=== PATIENT | female | born 1940 | race Caucasian/White ===

== ENCOUNTER 2017-07-24 14:42 | Emergency (ER) | payer OTHER ==
[~2017-07-24] VITALS: Ht 154.9 cm; Wt 127.7 kg
[2017-07-24] VITALS (7 sets, daily range): BP systolic 169–214; BP diastolic 67–129; PULSE 56–71; RESP 18–20; TEMP 97.6; O2SAT 94–96
[~2017-07-24 14:42] MED LIST: ADVA250A INH; ALLO300T2 PO; BUPR150T3 PO; FURO1TAB93 PO; GLUCTAB PO; LEVO75TA41 PO; LISI-360 PO; NORV5TAB PO; NOVOLOGP2 SQ; POTA-243 PO; SIMV80TA PO; VITA200017 PO
[2017-07-24] MEDS ORDERED: WELL200T PO (15:11)
[2017-07-24] MEDS ORDERED: MELO15TA20 PO (15:11)
[2017-07-24] MEDS ORDERED: ASPI-183 PO (15:11)
[2017-07-24] MEDS ORDERED: POTA10CA PO (15:11)
[2017-07-24] MEDS ORDERED: ATOR80TA45 PO (15:11)
[2017-07-24] MEDS ORDERED: GABA300C5 PO (15:11)
[2017-07-24] MEDS ORDERED: LISI10TA3 PO (15:11)
[2017-07-24] MEDS ORDERED: LEVO75TA3 PO (15:11)
[2017-07-24] MEDS ORDERED: FURO40TA PO (15:11)
[2017-07-24] MEDS ORDERED: ALLO300T2 PO (15:11)
[2017-07-24] MEDS ORDERED: TRAM50TA PO (15:11)
--- NOTE | 2017-07-24 15:30 | PD ---
HPI Chief Complaint: Cardiac Complaint Time Seen by Provider: 15:43 Travel History International Travel<30 days: No Contact w/Intl Traveler<30days: No Traveled to known affect area: No History of Present Illness HPI 77yo F presented to the ED as a referral from her Dr. Snow office for elevated blood pressure. Pt states that the nurse at the office checked her BP initially and then again at the end of the visit, with her BP ranging in the 200s systolic and high 90s diastolic. Pt has a significant medical history of CHF, HTN, and gout. She is noncompliant with her medication regimen. her last does of Lasix was several days ago. Pt denies chest pain, focal neurologic deficits, nausea, vomiting, orthopnea or headache. She does admit to a slight change in her vision while driving to the ED and SOB. Modifying Factors: None Associated Signs & Symptoms: Elevated blood pressures Risk Factors: History of hypertension, CHF, not taking her Lasix PFSH Past Medical History Cancer: Yes (MELANOMA ARM) Cardiovascular Problems: Yes (CHF, HTN) Diabetes: Yes Patient Takes Glucophage: No Endocrine: No Genitourinary: No Hepatitis: No Hiatal Hernia: No Hypertension: Yes Immune Disorder: No Musculoskeletal: Yes (arthritis) Neurologic: Yes (TIA) Psychiatric: No Reproductive: No Respiratory: Yes (SLEEP APNEA/ CPAP, COPD) Thyroid Disease: Yes Influenza Vaccination: Yes ?: Not Past Surgical History Abdominal Surgery: Yes (CHOLECYSTECTOMY) AICD: No Cardiac Surgery: Yes (STENT) Cholecystectomy: Yes Genitourinary Surgery: Yes (BLADDER SUSP.) Joint Replacement: No Oral Surgery: Yes (T & A) Pacemaker: No Tonsillectomy: Yes Other Surgery: Yes Social History Alcohol Use: No Tobacco Use: No Substance Use: No Allergies-Medications (Allergen,Severity, Reaction): Coded Allergies: atorvastatin (Unverified Allergy, Severe, can,t sleep, 07/24/17) ciprofloxacin (Unverified Allergy, Severe, DYSPHAGIA, NAUSEA, 07/24/17) clopidogrel (Unverified Allergy, Severe, rash, 07/24/17) meloxicam (Unverified Allergy, Severe, NAUSEA, 07/24/17) morphine (Unverified Allergy, Severe, rash, 07/24/17) piperacillin (Unverified Allergy, Severe, rash, 07/24/17) sulfamethoxazole (Unverified Allergy, Severe, rash, 07/24/17) tazobactam (Unverified Allergy, Severe, rash, 07/24/17) trimethoprim (Unverified Allergy, Severe, rash, 07/24/17) iodine (Unverified Allergy, Intermediate, rash, 07/24/17) IV DYE potassium iodide (Unverified Allergy, Intermediate, rash, 07/24/17) IV DYE povidone-iodine (Unverified Allergy, Intermediate, rash, 07/24/17) IV DYE sodium iodide (Unverified Allergy, Intermediate, rash, 07/24/17) IV DYE sodium iodide (Unverified Allergy, Intermediate, rash, 07/24/17) IV DYE Uncoded Allergies: metals (Allergy, Severe, rash, 03/14/13) Reported Meds & Prescriptions Reported Meds & Active Scripts Active Reported Tramadol (Tramadol HCl) 50 Mg Tab 50 Mg PO Q8H PRN Gabapentin 300 Mg Cap 300 Mg PO HS Atorvastatin (Atorvastatin Calcium) 80 Mg Tab 80 Mg PO HS Meloxicam 15 Mg Tab 15 Mg PO DAILY Furosemide 40 Mg Tab 40 Mg PO BID Lisinopril 10 Mg Tab 10 Mg PO DAILY Potassium Chloride ER (Potassium Chloride) 10 Meq Cap 10 Meq PO DAILY Levothyroxine (Levothyroxine Sodium) 75 Mcg Tab 75 Mcg PO DAILY Aspirin 325 Mg Tab 325 Mg PO DAILY Wellbutrin SR 12 HR (Bupropion HCl) 200 Mg Tab 200 Mg PO Q12HR Allopurinol 300 Mg Tab 300 Mg PO DAILY Review of Systems Except as stated in HPI: all other systems reviewed are Neg Respiratory: Positive: Shortness of Breath Physical Exam Narrative GENERAL: 77 well-developed, obese female in no acute distress. Alert and oriented x3. SKIN: Warm and dry. HEAD: Atraumatic. Normocephalic. NECK: Trachea midline. No JVD. Supple. CARDIOVASCULAR: Regular rate and rhythm. RESPIRATORY: No accessory muscle use. Clear to auscultation. Breath sounds equal bilaterally. GASTROINTESTINAL: Abdomen soft, non-tender, nondistended. Hepatic and splenic margins not palpable. MUSCULOSKELETAL: Extremities without clubbing, cyanosis. Bilateral pedal edema. No obvious deformities. NEUROLOGICAL: Awake and alert. No obvious cranial nerve deficits. Motor grossly within normal limits. Five out of 5 muscle strength in the arms and legs. Normal speech. PSYCHIATRIC: Appropriate mood and affect; insight and judgment normal. Data Data Last Documented VS Vital Signs Date Time Temp Pulse Resp B/P (MAP) Pulse Ox O2 Delivery O2 Flow Rate FiO2 07/24/17 18:11 58 18 188/89 (122) 96 07/24/17 17:00 Room Air 07/24/17 15:01 97.6 Orders Orders Complete Blood Count With Diff (07/24/17 15:43) Comprehensive Metabolic Panel (07/24/17 15:43) B-Type Natriuretic Peptide (07/24/17 15:43) Ckmb (Isoenzyme) Profile (07/24/17 15:43) Troponin I (07/24/17 15:43) Iv Access Insert/Monitor (07/24/17 15:43) Electrocardiogram (07/24/17 15:43) Ecg Monitoring (07/24/17 15:43) Oximetry (07/24/17 15:43) Oxygen Administration (07/24/17 15:43) Chest, Single Ap (07/24/17 15:43) Sodium Chloride 0.9% Flush (Ns Flush) (07/24/17 15:45) CKMB (07/24/17 15:24) CKMB% (07/24/17 15:24) Furosemide Inj (Lasix Inj) (07/24/17 17:30) Nitroglycerin 2% Oint (Nitroglycerin 2% (07/24/17 17:30) Labs Laboratory Tests Test 07/24/17 15:24 White Blood Count 6.9 TH/MM3 Red Blood Count 4.68 MIL/MM3 Hemoglobin 13.9 GM/DL Hematocrit 43.5 % Mean Corpuscular Volume 92.9 FL Mean Corpuscular Hemoglobin 29.6 PG Mean Corpuscular Hemoglobin Concent 31.9 % Red Cell Distribution Width 14.2 % Platelet Count 152 TH/MM3 Mean Platelet Volume 8.1 FL Neutrophils (%) (Auto) 65.7 % Lymphocytes (%) (Auto) 22.9 % Monocytes (%) (Auto) 6.5 % Eosinophils (%) (Auto) 4.2 % Basophils (%) (Auto) 0.7 % Neutrophils # (Auto) 4.6 TH/MM3 Lymphocytes # (Auto) 1.6 TH/MM3 Monocytes # (Auto) 0.5 TH/MM3 Eosinophils # (Auto) 0.3 TH/MM3 Basophils # (Auto) 0.0 TH/MM3 CBC Comment DIFF FINAL Differential Comment Blood Urea Nitrogen 21 MG/DL Creatinine 1.00 MG/DL Random Glucose 75 MG/DL Total Protein 7.0 GM/DL Albumin 3.6 GM/DL Calcium Level 9.5 MG/DL Alkaline Phosphatase 92 U/L Aspartate Amino Transf (AST/SGOT) 20 U/L Alanine Aminotransferase (ALT/SGPT) 23 U/L Total Bilirubin 0.5 MG/DL Sodium Level 143 MEQ/L Potassium Level 4.4 MEQ/L Chloride Level 106 MEQ/L Carbon Dioxide Level 31.6 MEQ/L Anion Gap 5 MEQ/L Estimat Glomerular Filtration Rate 54 ML/MIN Total Creatine Kinase 123 U/L Creatine Kinase MB 4.2 NG/ML Troponin I LESS THAN 0.02 NG/ML B-Type Natriuretic Peptide 78 PG/ML [facility] Medical Decision Making Medical Screen Exam Complete: Yes Emergency Medical Condition: Yes Medical Record Reviewed: Yes Interpretation(s) EKG shows sinus bradycardia rate of 56 bpm, no ST elevation or depression, and no arrhythmias. No significant T-wave inversions. Laboratory Tests Test 07/24/17 15:24 Mean Corpuscular Hemoglobin Concent 31.9 % (32.0-36.0) Eosinophils (%) (Auto) 4.2 % (0.0-4.0) Blood Urea Nitrogen 21 MG/DL (7-18) Estimat Glomerular Filtration Rate 54 ML/MIN (>89) Creatine Kinase MB 4.2 NG/ML (0.5-3.6) Troponin I LESS THAN 0.02 NG/ML Differential Diagnosis Hypertensive urgency versus CHF exacerbation versus ACS versus chronic hypertension Narrative Course Patient is fairly asymptomatic, states that she always is somewhat short of breath. She does have some leg edema. Chest x-ray did not show any signs of pulmonary edema. Vital signs are otherwise stable except for her fairly elevated blood pressures. She has not been taking her Lasix which is suspect could be a curb triggering factor. She was given Lasix in the ER with good urine output. She was also given nitroglycerin. Blood pressure came down nicely after the Lasix and she appears to be doing well in the ER. At this point, I suspect that medication noncompliance could be an issue here. She states that she does not like to take her Lasix if she has to go out because it makes her urinate too much. At this point, I would encourage her to take her Lasix as prescribed and have her follow-up with primary care doctor. Return for worsening in symptoms as needed. The plan has been discussed with her and she states understanding. Diagnosis Primary Impression: Chronic hypertension Disposition: 01 DISCHARGE HOME Condition: Stable Srinivas Solorio MD Jul 24, 2017 15:30
[2017-07-24] MEDS ORDERED: SODIUM CHLORIDE 0.9% FLUSH 10 ML FLUSH IVF PRN (15:45)
[2017-07-24 16:00] LABS: AUTOMATED NEUTROPHIL # 4.6 TH/MM3 (1.8-7.7); BASOPHIL % 0.7 % (0.0-2.0); EOSINOPHIL # 0.3 TH/MM3 (0-0.4); EOSINOPHIL % 4.2 % (0.0-4.0); HEMATOCRIT 43.5 % (35.0-46.0); HEMOGLOBIN 13.9 GM/DL (11.6-15.3); LYMPH % 22.9 % (9.0-44.0); LYMPHOCYTE # 1.6 TH/MM3 (1.0-4.8); MEAN CELL VOLUME 92.9 FL (80.0-100.0); MEAN CORPUSCULAR HEMOGLOBIN 29.6 PG (27.0-34.0); MEAN CORPUSCULAR HGB CONC 31.9 % (32.0-36.0); MEAN PLATELET VOLUME 8.1 FL (7.0-11.0); MONO % 6.5 % (0.0-8.0); MONOCYTE # 0.5 TH/MM3 (0-0.9); NEUT % 65.7 % (16.0-70.0); PLATELET COUNT 152 TH/MM3 (150-450); RED BLOOD COUNT 4.68 MIL/MM3 (4.00-5.30); RED CELL DISTRIBUTION WIDTH 14.2 % (11.6-17.2); WHITE BLOOD COUNT 6.9 TH/MM3 (4.0-11.0)
[2017-07-24 16:18] LABS: CHLORIDE 106 MEQ/L (98-107); SODIUM (NA) 143 MEQ/L (136-145)
[2017-07-24 16:22] LABS: ALBUMIN 3.6 GM/DL (3.4-5.0); BICARBONATE 31.6 MEQ/L (21.0-32.0); BLOOD UREA NITROGEN 21 MG/DL (7-18); CALCIUM 9.5 MG/DL (8.5-10.1); GLUCOSE,RANDOM 75 MG/DL (74-106)
[2017-07-24 16:25] LABS: ALT (GPT) 23 U/L (10-53); AST (GOT) 20 U/L (15-37); GLOMERULAR FILTRATION RATE 54 ML/MIN (>89)
[2017-07-24 16:27] LABS: TOTAL BILIRUBIN ADULT 0.5 MG/DL (0.2-1.0)
[2017-07-24 16:28] LABS: ALKALINE PHOSPHATASE 92 U/L (45-117)
[2017-07-24 16:30] LABS: TROPONIN I LESS THAN 0.02 NG/ML (0.02-0.05)
--- NOTE | 2017-07-24 16:30 | RADRPT ---
EXAM DATE/TIME: 07/24/2017 16:08 [facility] COMPARISON: No previous studies available for comparison. INDICATIONS : High blood pressure. Patient sent to the emergency room from primary doctor with high blood pressure . MEDICAL HISTORY : Hypertension. Chronic obstructive pulmonary disease. Congestive heart failure. TIA. Diabetes. Huma anoma. SURGICAL HISTORY : Coronary artery stent. Cholecystectomy. ENCOUNTER: Initial ACUITY: 1 day PAIN SCORE: 0/10 LOCATION: Bilateral chest FINDINGS: The cardiac silhouette is borderline in size. The lungs are focally clear. No significant effusion pr esent. CONCLUSION: No acute cardiopulmonary disease Adarsh Love MD on July 24, 2017 at 16:27 Board Certified Radiologist. This report was verified electronically.
[2017-07-24] MEDS ORDERED: NITROGLYCERIN 2% OINT 1 GM PACKET TOPICAL ONE (17:30)
[2017-07-24] MEDS ORDERED: FUROSEMIDE 40 MG/4 ML VIAL IV PUSH ONE (17:30)
--- NOTE | 2017-07-25 22:04 | EKG ---
Date Performed: 07/24/2017 Time Performed: 15:49:04 PTAGE: 77 years EKG: SINUS BRADYCARDIA NONSPECIFIC T-WAVE ABNORMALITY BORDERLINE ECG NO PREVIOUS TRACING DOCTOR: Kalin Calero Interpretating Date/Time 07/25/2017 22:03:37
== END 2017-07-24 18:44 | disposition home or self-care (01) ==
LOC: PHED 14:42
DX: H53.9 Unspecified visual disturbance (principal); R06.02 Shortness of breath; R60.0 Localized edema; R94.31 Abnormal electrocardiogram [ECG] [EKG]; Z91.14 Patient's other noncompliance with medication regimen; I50.9 Heart failure, unspecified; M10.9 Gout, unspecified; E11.9 Type 2 diabetes mellitus without complications; E07.9 Disorder of thyroid, unspecified; M19.90 Unspecified osteoarthritis, unspecified site; G47.30 Sleep apnea, unspecified; Z85.828 Personal history of other malignant neoplasm of skin; Z86.73 Personal history of transient ischemic attack (TIA), and cerebral infarction without residual deficits
CPT/HCPCS: 71045; 80053; 82550; 82552; 83880; 84484; 85025; 93005; 96374; 99285; J1940